=== PATIENT | male | born 1960 | race Caucasian/White ===

== ENCOUNTER 2018-01-24 21:13 | Emergency (ER) | payer OTHER ==
[~2018-01-24] VITALS: Ht 182.9 cm; Wt 84.1 kg
[2018-01-24 23:22] LABS: HEMATOCRIT 32.3 % (38.0-50.0); HEMOGLOBIN 11.1 G/DL (12.5-16.6); MCH 31.1 PG (29.0-34.0); MCHC 34.4 G/DL (30.0-36.0); MCV 90.5 FL (86-99); PLATELET COUNT 230 K/uL (156-360); RBC DIS.WIDTH-CV 15.1 % (11.8-14.6); RBC DIS.WIDTH-SD 49.7 % (39-53); RED BLOOD COUNT 3.57 M/uL (4.00-5.50); WHITE BLOOD COUNT 7.8 K/uL (4.1-10.2)
[2018-01-24 23:36] LABS: CHLORIDE 94 mEq/L (99-109); POTASSIUM 4.2 mEq/L (3.7-5.4); SODIUM 126 mEq/L (136-147)
[2018-01-24 23:37] LABS: GLUCOSE 130 mg/dL (70-99)
[2018-01-24 23:41] LABS: CREATININE 0.8 mg/dL (0.6-1.3); GFR ESTIMATE (CALCULATED) > 59 mL/min/ (58.99-99999)
[2018-01-24 23:42] LABS: UREA NITROGEN (BUN) 10 mg/dL (9-23)
[2018-01-25 02:05] LABS: CHLORIDE 99 mEq/L (99-109)
[2018-01-25 02:06] LABS: POTASSIUM 4.1 mEq/L (3.7-5.4); SODIUM 130 mEq/L (136-147)
[2018-01-25 02:07] LABS: GLUCOSE 108 mg/dL (70-99)
[2018-01-25 02:11] LABS: CREATININE 0.8 mg/dL (0.6-1.3); GFR ESTIMATE (CALCULATED) > 59 mL/min/ (58.99-99999)
[2018-01-25 02:12] LABS: UREA NITROGEN (BUN) 11 mg/dL (9-23)
[2018-01-25 04:22] VITALS: BP 103/71
== END 2018-01-25 04:23 | disposition home or self-care (01) ==
LOC: EME 21:13 → EDBD 21:13 → EME 01-25 04:23
PROVIDERS: Physician Assistant
DX: S01.01XA Laceration without foreign body of scalp, initial encounter (principal); S80.02XA Contusion of left knee, initial encounter; S80.01XA Contusion of right knee, initial encounter; I95.9 Hypotension, unspecified; Y09 Assault by unspecified means; Y07.9 Unspecified perpetrator of maltreatment and neglect; Z23 Encounter for immunization; Z59.0 Homelessness; F17.200 Nicotine dependence, unspecified, uncomplicated
CPT/HCPCS: 70450; 72125; 73564; 80048; 85027; 99281; 99284; J7030